=== PATIENT | male | born 2000 | race Caucasian/White ===

== ENCOUNTER 2023-05-07 19:18 | Emergency (ER) | payer OTHER, SELFPAY ==
[2023-05-07] VITALS (29 sets, daily range): BP systolic 130–155; BP diastolic 77–102; PULSE 88–133; RESP 7–20; TEMP 36; O2SAT 94–100
--- NOTE | ~2023-05-07 | XR_ITS ---
EXAMINATION: XR chest 1V portable DATE: 05/07/2023 20:42 INDICATION: Overdose. TECHNIQUE: A single frontal view of the chest was obtained. COMPARISON: None. FINDINGS: There is no pneumonia, pleural effusion, or pneumothorax. The heart size is normal. IMPRESSION: 1. No acute cardiopulmonary disease. Reviewed, dictated and finalized at location E.
--- NOTE | 2023-05-07 19:31 | ECG_ITS ---
Measurements Intervals [place] Rate: 119 P: 71 [place]: 126 QRS: 38 QRSD: 89 T: 23 QT: 319 QTc: 449 Interpretive Statements SINUS TACHYCARDIA ABNORMAL RHYTHM ECG NO PREVIOUS ECG AVAILABLE FOR COMPARISON Electronically Signed On 05-08-2023 14:17:44 CDT by Elbert Steinberg M.D.
--- NOTE | 2023-05-07 20:11 | ED.OVERDOSE ---
HPI - Overdose General Chief Complaint: Overdose <Yuliana العراقي MD - Last Filed: 05/08/23 13:06> Stated Complaint: OD-narcan given X4 <Yuliana العراقي MD - Last Filed: 05/08/23 13:06> Time Seen by Provider: 05/07/23 20:11 <Yuliana العراقي MD - Last Filed: 05/08/23 13:06> History of Present Illness HPI Narrative: Patient is a 23-year-old male with history of methamphetamine use here after an overdose. Patient states that he thought he was snorting meth and some other medication for pain. He states that the last thing he remembers is snorting a pill and then woke up from the ambulance. He did receive Narcan in route. He denies prior history of opiate use. Currently states he has a headache and nausea, otherwise feels well. No chest pain or shortness of breath. <Yuliana العراقي MD - Last Filed: 05/08/23 13:06> Related Data Allergies/Adverse Reactions: Allergies Allergy/AdvReac Type Severity Reaction Status Date / Time No Known Allergies Allergy Verified 05/07/23 19:19 <Yuliana العراقي MD - Last Filed: 05/08/23 13:06> Review of Systems Review of Systems: All systems reviewed & are unremarkable except as noted in HPI and below <Yuliana العراقي MD - Last Filed: 05/08/23 13:06> PMFSH Social History Social History: Social History Substance use type: opiates and methamphetamine <Yuliana العراقي MD - Last Filed: 05/08/23 13:06> Exam Narrative: GENERAL: Well-appearing, well-nourished, and in no acute distress. HEAD: Normocephalic, atraumatic. EYES: PERRLA, 2-3 mm in size and EOMI. ENT: Nares clear. Mucous membranes moist. NECK: Supple. CHEST: Clear to auscultation. No respiratory distress. HEART: Regular rate and rhythm. Normal peripheral pulses. ABDOMEN: Soft, nontender, nondistended. EXTREMITIES: Normal range of motion. No edema. SKIN: Warm, dry, no rash. NEURO: No focal deficits. Alert and oriented x3. PSYCH: Normal mood and affect. <Yuliana العراقي MD - Last Filed: 05/08/23 13:06> Course Course Emergency Course: Chart review performed. Patient here with overdose. He was reportedly given 2mg of Narcan en route. Triage vitals show tachycardia, hypertension, normal O2 sat. Patient seen evaluated, nontoxic appearing. He does have small pupils that are on the smaller side, 2-3 mm in size. He does have adequate respirations at this time and is speaking in full sentences providing history. Will give antiemetic, perform a chest x-ray, and monitor him for respiratory depression after receiving narcan. Patient agreeable. Patient re-evaluated, continues to be alert, oriented. Normal respiratory rate at this time. I did provide substance abuse resources to patient and family. Will prescribe Narcan. Patient now endorsing that he overdosed in attempt to kill himself. Psych clearance labs ordered. Patient will be stripped and placed in psych room with suicide precautions. Patient signed out pending psych clearance labs, crisis center evaluation. Patient medically cleared. Evaluated by crisis services, accepted to [facility] psych, transferred via EMS. <Yuliana العراقي MD - Last Filed: 05/08/23 13:06> Reevaluation(s) Reevaluation #1: Patient care signed to me by Dr. Rocha. As the patient's labs returned patient is medically cleared. Patient is medically cleared to be evaluated by the crisis counselor, for transport and for psychiatric placement as needed. At time of signout to Dr. Crain placement is pending <Reza Luan MD - Last Filed: 05/08/23 18:58> Reevaluation #2: 07:00 - This patient was signed out to me by overnight ED physician, Dr. Luna, pending placement. 09:45 - The patient was accepted to [facility] inpatient psychiatry unit voluntarily by Dr. Self (psychiatry). <Lloyd Crain MD - Last Filed: 05/08/23 11:17> Date: 05/08/23 <Lloyd Crain MD - Last Filed: 05/08/23 11:17> Vital Signs Vital signs:
[2023-05-07] MEDS: ONDANSETRON INJ 4 MG/2 ML VIAL IV PUSH ×2 (21:16→22:27)
[2023-05-07 23:08] LABS: Basophils Absolute Auto 0.1 K/mm3 (0.0-0.1); Basophils Percent Auto 0.3 % (0.2-1.2); Eosinophils Percent Auto 0.1 % (0-4.4); Hematocrit 47.6 % (42.0-52.0); Hemoglobin 16.4 g/dL (14.0-18.0); Immature Granulocyte Absolute 0.05 K/mm3 (0.00-0.031); Immature Granulocyte Percent A 0.3 % (0-0.5); Lymphocytes Absolute Auto 1.05 K/mm3 (0.9-3.2); Lymphocytes Percent Auto 7.3 % (18.3-44.2); Mean Corpuscular HGB Conc 34.5 g/dl (32-36); Mean Corpuscular Hemoglobin 31.7 pg (26-34); Mean Corpuscular Volume 91.9 fl (80-100); Mean Platelet Volume 9.1 fl (7.4-10.4); Monocytes Absolute Auto 0.7 K/mm3 (0.1-0.6); Monocytes Percent Auto 4.6 % (2.6-8.5); Neutrophils Absolute Auto 12.6 K/mm3 (1.3-6.7); Neutrophils Percent Auto 87.4 % (45.5-73.1); Platelet Count Result 232 k/mm3 (150-375); Red Blood Count 5.18 M/mm3 (4.6-6.20); Red Cell Distribution Width 12.2 % (11.5-14.5); White Blood Count 14.4 K/mm3 (4.5-10.0)
[2023-05-07 23:19] LABS: Acetaminophen < 10 ug/mL (10-30); Ethanol < 10 mg/dL (<10); Salicylate < 1.0 mg/dL (2-20)
[2023-05-07 23:43] LABS: Influenza A QL RT-PCR Negative (Negative); Influenza B QL RT-PCR Negative (Negative); SARS-CoV-2 RNA PCR Negative (Negative)
[2023-05-07 23:55] LABS: Alanine Aminotransferase 28 U/L (6-50); Albumin Level 4.6 g/dL (3.5-5.1); Alkaline Phosphatase 80 U/L (38-126); Anion Gap 8 mmol/L (8-16); Aspartate Amino Transferase 36 U/L (17-59); Blood Urea Nitrogen 19 mg/dL (9-20); Calcium 8.9 mg/dL (8.4-10.2); Carbon Dioxide 29 mmol/L (22-30); Chloride 102 mmol/L (98-107); Estimated CRCL calculation 97 ml/min; Estimated Glomerular Filt Rate > 60; Glucose 91 mg/dL (65-110); Potassium 4.5 mmol/L (3.4-5.0); Sodium 139 mmol/L (137-145)
[2023-05-08] VITALS (25 sets, daily range): BP systolic 111–140; BP diastolic 51–99; PULSE 72–118; RESP 10–20; O2SAT 93–100
[2023-05-08] MEDS: SODIUM CHLORIDE 0.9% IV 1,000 ML 999 ML IV CONT (01:38)
[2023-05-08] MEDS: ACETAMINOPHEN 325 MG TABLET 650 MG PO (02:52)
[2023-05-08] MEDS: METOCLOPRAMIDE HCL INJ 10 MG/2 ML VIAL IV PUSH (02:53)
[2023-05-08 03:05] LABS: Barbiturate Screen Urine Negative (Negative); Benzodiazepines Screen Urine Positive (Negative)
[2023-05-08 03:10] LABS: Add Urine Microscopic? YES; Appearance Urine Cloudy (Clear); Bacteria Urine None Seen /hpf; Bilirubin Urine Negative (Negative); Blood Urine Negative (Negative); Color Urine Yellow (Yellow); Glucose Urine UA Negative (Negative); Ketones Urine Trace mg/dL (Negative); Leukocyte Esterase Ur Negative LEU/UL (Negative); Mucus Urine Present /lpf; Nitrate Urine Negative (Negative); Non Pathogenic Casts 0-2; Protein Urine 1+ mg/dL (Negative); RBC Urine 0-2 /hpf (0-2); Specific Grav Ur 1.013 (1.001-1.035); Squamous Epithelial Cell Urine None seen /hpf (Few); Urobilinogen Urine 0.2 mg/dL (<2.0)
[2023-05-08 03:15] LABS: Cannabinoid Screen Urine Negative (Negative); Cocaine Screen Urine Negative (Negative); Methadone Screen Urine Negative (Negative); Opiate Screen Urine Negative (Negative); Phencyclidine Screen Urine Negative (Negative)
--- NOTE | 2023-05-08 03:19 | PC.NURSE ---
Patient stated he was attempting to kill himself prior to arrival by overdosing.
[2023-05-08 03:32] LABS: Amphetamine Screen Urine Positive (Negative)
--- NOTE | 2023-05-08 05:55 | PC.NURSE ---
Crisis evaluated patient and plans to place for inpatient psych.
--- NOTE | 2023-05-08 08:23 | PC.NURSE ---
waiting for acceptance to inpt facility moved to room 15 at this time, sitter at door
--- NOTE | 2023-05-08 09:56 | PC.NURSE ---
Nurse to Nurse report given to Sandra LEBRON at [facility] [phone] all questions answered and Sandra LEBRON verbalized understanding. Pt to be taken to room 5334-A and is the accepting physician
== END 2023-05-08 11:20 ==
PROVIDERS: Student in an Organized Health Care Education/Training Program; Emergency Provider Preventive Medicine Aerospace Medicine
DX: T50.912A Poisoning by multiple unspecified drugs, medicaments and biological substances, intentional self-harm, initial encounter (principal); Z11.52 Encounter for screening for COVID-19; R00.0 Tachycardia, unspecified
CPT/HCPCS: 36415; 71045; 80053; 80307; 81001; 84443; 85025; 87086; 87636; 93005; 96361; 96374; 96376; 99285; A9270; J2405; J2765; J7030